=== PATIENT | male | born 1965 | race Caucasian/White ===

== ENCOUNTER 2021-11-26 18:34 | Emergency (ER) | payer SELFPAY ==
[~2021-11-26] VITALS: Ht 175.3 cm; Wt 70.0 kg
[2021-11-26] MEDS ORDERED: SODIUM CHLORIDE 0.9% 1,000 ML IV ONE (19:00)
[2021-11-26] MEDS ORDERED: KETOROLAC 15MG/ML VIAL IV ONE (19:00)
[2021-11-26 19:31] LABS: CHLORIDE 107 mEq/L (98-107); INR 0.9; PROTHROMBIN TIME 10.1 sec (9.6-11.0)
[2021-11-26 19:35] LABS: BASOPHILS % 0.5 % (0.0-2.0); EOSINOPHILS % 2.7 % (0.0-5.0); HEMATOCRIT. 41.6 % (42.0-52.0); LYMPHOCYTES % 10.1 % (20.0-50.0); MEAN CORPUSCULAR HEMOGLOBIN 30.4 pg (28.0-32.0); MEAN CORPUSCULAR VOLUME 90.3 fL (80.0-94.0); MEAN PLATELET VOLUME 8.3 fl (7.4-10.4); NEUTROPHILS % 83.7 % (40.0-76.0); PLATELET 282 x1000/uL (130-400); RED CELL DISTRIBUTION WIDTH 13.5 % (11.6-14.6)
[2021-11-26 21:27] LABS: CLARITY URINE CLEAR (CLEAR); COLOR URINE YELLOW (YELLOW); KETONES URINE 2+ (NEGATIVE); LEUKOCYTE ESTERASE URINE NEGATIVE (NEGATIVE); NITRITE URINE NEGATIVE (NEGATIVE); OCCULT BLOOD URINE 3+ (NEGATIVE); PROTEIN URINE NEGATIVE (NEGATIVE); SPECIFIC GRAVITY URINE 1.011 (1.005-1.030); UROBILINOGEN URINE 0.2 E.U./dL (0.2-1.0)
[2021-11-26] MEDS ORDERED: CEFTRIAXONE 1 G PREMIX 50 ML IV NR (22:30)
[2021-11-26 22:36] VITALS: BP 146/90
[2021-11-26] MEDS ORDERED: IOHEXOL-300 100 ML BOTTLE ONE (22:49)
[2021-11-26] MEDS ORDERED: IBUP-2028 MT (23:14)
== END 2021-11-27 00:03 | disposition home or self-care (01) ==
LOC: ER 18:34
DX: R10.32 Left lower quadrant pain (principal)
CPT/HCPCS: 36415; 74177; 80053; 81003; 83605; 83690; 85025; 85610; 96365; 96375; 99285; J0696; J1885; J7030; Q9967; Z7610